=== PATIENT | female | born 1990 | race Caucasian/White ===

== ENCOUNTER 2018-07-11 15:43 | Emergency (ER) | payer SELFPAY ==
--- NOTE | 2018-07-11 18:31 | ULT ---
PELVIC ULTRASOUND: 07/11/18 COMPARISON: None. HISTORY: Abdominal cramping and small amount of vaginal bleeding. Four week female. TECHNIQUE: Multiplanar beltran scale and color doppler images were obtained in a transabdominal and transvaginal pe lvic ultrasound. Spectral analysis of the doppler waveforms of the ovaries were performed. FINDINGS: The uterus is normal in size and appearance. No gestational sac is seen in the uterus. The endometria l strip is normal in appearance measuring 6 mm. No free fluid is seen in the pelvis. Both ovaries are normal in size and appearance and demonstrate n ormal internal flow. No ectopic is identified. IMPRESSION: No evidence of intrauterine or ectopic . POS: [facility]
== END 2018-07-11 18:16 | disposition home or self-care (01) ==
LOC: ERS 15:43
DX: N93.9 Abnormal uterine and vaginal bleeding, unspecified (principal); F41.9 Anxiety disorder, unspecified; F32.9 Major depressive disorder, single episode, unspecified; F17.210 Nicotine dependence, cigarettes, uncomplicated
CPT/HCPCS: 76856